=== PATIENT | female | born 1955 | race Caucasian/White ===

== ENCOUNTER 2019-07-15 15:54 | Emergency (ER) | payer MEDICARE, OTHER, SELFPAY ==
[2019-07-15] VITALS (10 sets, daily range): BP systolic 108–152; BP diastolic 61–82; PULSE 90–106; RESP 16–25; TEMP 37.4; O2SAT 96–99; BMI 31.1
--- NOTE | 2019-07-15 18:39 | DI.CT.S_ITS ---
PROCEDURE: CT ABDOMEN PELVIS W CON INDICATIONS: large abscess in lower abdomen TECHNIQUE: After the administration of intravenous contrast, 5 mm thick sections acquired from the diaphragm to the symphysis. 5 mm coronal and sagittal reformats were acquired. For radiation dose reduction, the following was used: automated exposure control, adjustment of mA and/or kV according to patient size. COMPARISON: [facility] , CT, ABD/PELVIS W/CON ([facility]), 05/31/2010, 17:22. FINDINGS: Image quality: Excellent. ABDOMEN: Lung bases: Lung bases are clear. Heart size is normal. A moderate to large hiatal hernia is seen. Solid organs: Liver is normal in size and enhancement. Diffuse fatty liver infiltration is noted. Gallbladder is been removed. Biliary system is non dilated. Pancreas enhances normally. Spleen is normal in size and enhancement. No adrenal nodules. Kidneys demonstrate normal size and enhancement, without hydronephrosis. A water density cyst can be seen within the left mid kidney laterally measuring 12 mm. Peritoneum and bowel: Left upper quadrant postoperative clips are seen. Bowel loops demonstrate normal wall thickness and caliber. No free fluid or air. A moderate amount of stool can be seen within the colon. Incidental note is made of a normal-appearing appendix. Nodes and vessels: No retroperitoneal or mesenteric adenopathy by size criteria. Aorta and inferior vena cava are normal in size. Miscellaneous: There is an irregular rim enhancing multiloculated fluid collection seen involving the anterior abdominal wall, which measures 7.6 cm transversely by 5.5 cm AP, with a craniocaudal extent of 3.9 cm. Moderate surrounding inflammatory changes are seen. Just deep and superior to the primary abscess, there is an additional multiloculated abscess collection seen that measures 2.4 x 2.8 x 1.7 cm. Paraumbilical PELVIS: Genitourinary: Bladder wall thickness is normal. Miscellaneous: No inguinal hernias or adenopathy. Cystic changes are seen of the adnexal regions, with the largest individual locule measuring up to 2.4 cm. This patient is status post hysterectomy. Bones: No suspicious bony lesions. No vertebral body compression fractures. Mild dextroconvex scoliotic curvature is seen. Degenerative changes are seen throughout. IMPRESSION: Areas of multiloculated abscess can be seen involving the anterior abdominal wall inferiorly. Adnexal cysts, with the largest locule measuring up to 2.4 cm. When clinically appropriate, please consider a dedicated pelvic ultrasound for further evaluation. These are only slightly larger than 2010 and are likely benign. Incidental note is made of: Moderate to large hiatal hernia Fatty liver infiltration Cholecystectomy Mild fat containing periumbilical hernia Normal appendix Hysterectomy Dictated by: Robi Joy M.D. on 07/15/2019 at 20:53 Approved by: Robi Joy M.D. on 07/15/2019 at 21:00
[2019-07-15 19:40] LABS: Add Manual Diff / Slide Review NO; Basophils Absolute Auto 0 /uL (0-100); Basophils Percent Auto 0.5 % (0-2); Eosinophils Absolute Auto 0 /uL (0-450); Eosinophils Percent Auto 0.5 % (2-4); Hematocrit 34.9 % (36-46); Hemoglobin 11.9 g/dL (12.0-16.0); Lymphocytes Absolute Auto 1700 /uL (1100-4500); Lymphocytes Percent Auto 23.7 % (25-40); Mean Corpuscular Hemoglobin 29.2 PG (26-34); Mean Corpuscular Volume 85.7 fL (80-100); Monocytes Absolute Auto 900 /uL (0-900); Monocytes Percent Auto 12.5 % (3-14); Neutrophils Absolute Auto 4600 /uL (1500-7000); Neutrophils Percent Auto 62.8 % (50-75); Platelet Count 378 X10^3/uL (150-400); Red Blood Cell Count 4.07 X10^6/uL (4.0-5.2); Red Cell Distribution Width 12.8 % (11.6-14.8); White Blood Cell Count 7.3 X10^3/uL (4.5-11.0)
[2019-07-15 19:50] LABS: BUN Creatinine Ratio 15.7 (6-22); Blood Urea Nitrogen 11 mg/dL (7-17); Calcium 8.8 mg/dL (8.4-10.2); Carbon Dioxide 26 mmol/L (22-32); Chloride 101 mmol/L (98-107); Estimated Glomerular Filt Rate > 60.0 mL/min (>60); Glucose 87 mg/dL (80-110); HEMOLYSIS < 15 (0-50); Potassium 3.7 mmol/L (3.4-5.1); Sodium 139 mmol/L (137-145)
--- NOTE | 2019-07-15 21:11 | ED_ITS ---
HPI - Abdominal Pain <JEANNE Parson - Last Filed: 07/16/19 00:43> General Chief Complaint: Abdominal Pain Stated Complaint: sent by physician for abcess on abdomen Time Seen by Provider: 07/15/19 17:56 Source: patient and family Mode of arrival: Ambulatory Limitations: no limitations History of Present Illness HPI narrative: This is a 64-year-old female, nonsmoker, who presents to ED after referred by her primary care physician's office for evaluation on low abdominal abscess. Patient reports onset of small abdominal lump started a week ago which has been increasing in size, pain, redness, and warmth. Patient denies fever or chills. Patient had mild nausea but no vomiting. Patient had surgical history such as partial hysterectomy, cholecystectomy, tummy tuck and has transverse scar near for she has a abdominal abscess. Related Data Home Medications Medication Instructions Recorded Confirmed estradiol 0.5 mg PO DAILY 07/15/19 07/15/19 ketorolac OPHTHALMIC (EYE) 07/15/19 prednisolone acetate OPHTHALMIC (EYE) 07/15/19 tobramycin OPHTHALMIC (EYE) 07/15/19 Previous Rx's Medication Instructions Recorded sulfamethoxazole-trimethoprim 1 tab PO BID 7 Days #14 tab 07/15/19 tramadol 50 mg PO Q12H PRN #7 tab 07/15/19 Allergies Allergy/AdvReac Type Severity Reaction Status Date / Time hydrocodone [HYDROCODONE] Allergy Unknown ITCHING Unverified 02/03/18 12:11 AND THROAT SWELLING Review of Systems <JEANNE Parson - Last Filed: 07/16/19 00:43> Review of Systems ROS Unobtainable: All systems reviewed & are unremarkable except as noted in HPI and below PFSH <JEANNE Parson - Last Filed: 07/16/19 00:43> Surgical History H/O abdominoplasty (Acute) History of repair of hiatal hernia Status post cholecystectomy Status post hysterectomy Family History (Updated 01/21/16 @ 00:00 by Conversion Provider) Father Diabetes mellitus Mother Hypertension Social History Smoking Status: Never smoker Family History Father Diabetes mellitus Mother Hypertension Social History Smoking Status: Never smoker Exam <JEANNE Parson - Last Filed: 07/16/19 00:43> Narrative Exam Narrative: General appearance: well developed, well nourished, in no acute distress. Head: normocephalic, atraumatic, no scalp lesions, non-tender. Eye: pupil equal, round. EOMI. Nose: nares patent. Oral: mucosa moist. Neck/Thyroid: neck supple, full range of motion, no visible masses. Skin: Large indurated low abdominal lesion with warmth, erythema without any drainage. Old horizontal surgical scar on low abdomen. no suspicious rashes, lesions over other visible areas. Warm and dry. Heart: no clubbing, no cyanosis, no edema. S1 and S2 with regular rhythm and rate. Lungs: Breathing even and unlabored. Lungs clear to auscultate in all lobes. No stridor. No accessory muscles used. Chest: normal shape and expansion. Abdomen: non-obese, non-distended. Neurologic: alert and oriented. 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 Psych: good eye contact, normal affect. Initial Vital Signs Initial Vital Signs: Vital Signs Temperature 99.3 F 07/15/19 16:02 Pulse Rate 99 H 07/15/19 16:02 Respiratory Rate 16 07/15/19 16:02 Blood Pressure 132/78 07/15/19 16:02 Pulse Oximetry 96 07/15/19 16:02 <Jimbo Wetzel DO - Last Filed: 07/16/19 02:07> Initial Vital Signs Initial Vital Signs: Vital Signs Temperature 99.3 F 07/15/19 16:02 Pulse Rate 99 H 07/15/19 16:02 Respiratory Rate 16 07/15/19 16:02 Blood Pressure 132/78 07/15/19 16:02 Pulse Oximetry 96 07/15/19 16:02 Procedures <JEANNE Parson - Last Filed: 07/16/19 00:43> Abscess I/D Site: abdomen Side (if applicable): left Sedation/analgesia: midazolam and fentanyl Local Anesthetic: lidocaine 2% and with epi Amount of anesthesia used (mL): 10 Technique: incised with #11 blade and other (by DR. Krause and cauterized) Irrigation: Yes Packing used?: plain (wet gauze) and sarai drain Procedural Sedation Patient Age: Patient is 5yrs or older Consent signed: Yes Time out performed: Yes Indication: incision and drainage of abscess ASA Class: I Mallampati Airway Classification: Class II Time of Last PO Intake: 14:00 Preparation: paint crew supervisor applied, pulse oximeter, capnometry used, supplemental O2 applied, reversal agents at bedside, suction/airway equipment at bedside and IV secured Fentanyl: IV Fentanyl dose (mcg): 75 Midazolam: IV Midazolam dose (mg): 5 ED Sedation Level: Moderate (Concious) Patient Tolerated Procedure: Well Complications: none Scores <JEANNE Parson - Last Filed: 07/16/19 00:43> GCS [place] coma scale eye opening: Spontaneous Jairon coma scale verbal response: Orientated [place] coma scale motor response: Obey commands [place] coma scale total score: 15 Course <JEANNE Parson - Last Filed: 07/16/19 00:43> Orders Ordered: ED Orders 07/15/19 18:39 CT abdomen pelvis w con Stat 07/15/19 19:33 Basic Metabolic Panel Stat Complete Blood Count AUTO DIFF Stat 07/15/19 19:51 Lactate (Lactic Acid) Stat 07/15/19 22:00 Wound Culture and Gram Stain Routine Wound Culture and Gram Stain Stat Discontinued Medications Fentanyl (Sublimaze) 50 mcg IV NOW ONE Stop: 07/15/19 21:43 Last Admin: 07/15/19 23:04 Dose: 50 mcg Documented by: BRANDY Sodium Chloride (Normal Saline 0.9%) 1,000 mls @ 150 mls/hr IV CONT BETO Last Infusion: 07/16/19 01:02 Dose: 150 mls/hr Documented by: Admin: 07/15/19 22:00 Dose: 150 mls/hr Documented by: BRANDY Vancomycin HCl (Vancomycin) 1,000 mg in 200 mls @ 200 mls/hr IV NOW ONE Stop: 07/15/19 23:27 Last Infusion: 07/16/19 00:37 Dose: 200 mls/hr Documented by: Admin: 07/15/19 23:09 Dose: 200 mls/hr Documented by: BRANDY Lidocaine/Epinephrine (Xylocaine 2% W/Epi) 20 ml INJ INTRA-OP ONE Stop: 07/15/19 22:09 Last Admin: 07/15/19 23:04 Dose: 20 ml Documented by: BRANDY Midazolam HCl (Versed) 3 mg IV NOW ONE Stop: 07/15/19 21:43 Last Admin: 07/15/19 22:16 Dose: Not Given Documented by: BRANDY Ondansetron HCl (Zofran) 4 mg IV NOW ONE Stop: 07/15/19 21:43 Last Admin: 07/15/19 22:00 Dose: 4 mg Documented by: BRANDY Trimethoprim/Sulfamethoxazole (Bactrim Ds Prepack) 1 bottle MISC SEEINSTR ONE Stop: 07/15/19 22:22 Last Admin: 07/15/19 23:09 Dose: 1 bottle Documented by: BRANDY Vital Signs Vital signs: Vital Signs - 8 hr 07/15/19 20:35 07/15/19 22:10 07/15/19 22:16 Temperature Pulse Rate 90 106 H Respiratory Rate 17 20 25 H Blood Pressure Blood Pressure [Right Arm] 152/82 H 138/70 Pulse Oximetry 98 98 07/15/19 22:20 07/15/19 22:25 07/15/19 22:30 Temperature Pulse Rate 97 H 95 H 100 H Respiratory Rate 19 22 20 Blood Pressure Blood Pressure [Right Arm] 114/61 114/61 115/71 Pulse Oximetry 98 97 99 07/15/19 22:35 07/15/19 22:40 07/15/19 22:45 Temperature Pulse Rate 96 H 95 H 97 H Respiratory Rate 22 19 20 Blood Pressure Blood Pressure [Right Arm] 110/66 108/69 119/62 Pulse Oximetry 99 99 97 07/16/19 01:05 Temperature 98.2 F Pulse Rate 87 Respiratory Rate 16 Blood Pressure 118/74 Blood Pressure [Right Arm] Pulse Oximetry 98 <Jimbo Wetzel, - Last Filed: 07/16/19 02:07> Orders Ordered: ED Orders 07/15/19 18:39 CT abdomen pelvis w con Stat 07/15/19 19:33 Basic Metabolic Panel Stat Complete Blood Count AUTO DIFF Stat 07/15/19 19:51 Lactate (Lactic Acid) Stat 07/15/19 22:00 Wound Culture and Gram Stain Routine Wound Culture and Gram Stain Stat Discontinued Medications Fentanyl (Sublimaze) 50 mcg IV NOW ONE Stop: 07/15/19 21:43 Last Admin: 07/15/19 23:04 Dose: 50 mcg Documented by: BRANDY Sodium Chloride (Normal Saline 0.9%) 1,000 mls @ 150 mls/hr IV CONT BETO Last Infusion: 07/16/19 01:02 Dose: 150 mls/hr Documented by: Admin: 07/15/19 22:00 Dose: 150 mls/hr Documented by: BRANDY Vancomycin HCl (Vancomycin) 1,000 mg in 200 mls @ 200 mls/hr IV NOW ONE Stop: 07/15/19 23:27 Last Infusion: 07/16/19 00:37 Dose: 200 mls/hr Documented by: Admin: 07/15/19 23:09 Dose: 200 mls/hr Documented by: BRANDY Lidocaine/Epinephrine (Xylocaine 2% W/Epi) 20 ml INJ INTRA-OP ONE Stop: 07/15/19 22:09 Last Admin: 07/15/19 23:04 Dose: 20 ml Documented by: BRANDY Midazolam HCl (Versed) 3 mg IV NOW ONE Stop: 07/15/19 21:43 Last Admin: 07/15/19 22:16 Dose: Not Given Documented by: BRANDY Ondansetron HCl (Zofran) 4 mg IV NOW ONE Stop: 07/15/19 21:43 Last Admin: 07/15/19 22:00 Dose: 4 mg Documented by: BRANYD Trimethoprim/Sulfamethoxazole (Bactrim Ds Prepack) 1 bottle MISC SEEINSTR ONE Stop: 07/15/19 22:22 Last Admin: 07/15/19 23:09 Dose: 1 bottle Documented by: BRANDY Vital Signs Vital signs: Vital Signs - 8 hr 07/15/19 20:35 07/15/19 22:10 07/15/19 22:16 Temperature Pulse Rate 90 106 H Respiratory Rate 17 20 25 H Blood Pressure Blood Pressure [Right Arm] 152/82 H 138/70 Pulse Oximetry 98 98 07/15/19 22:20 07/15/19 22:25 07/15/19 22:30 Temperature Pulse Rate 97 H 95 H 100 H Respiratory Rate 19 22 20 Blood Pressure Blood Pressure [Right Arm] 114/61 114/61 115/71 Pulse Oximetry 98 97 99 07/15/19 22:35 07/15/19 22:40 07/15/19 22:45 Temperature Pulse Rate 96 H 95 H 97 H Respiratory Rate 22 19 20 Blood Pressure Blood Pressure [Right Arm] 110/66 108/69 119/62 Pulse Oximetry 99 99 97 07/16/19 01:05 Temperature 98.2 F Pulse Rate 87 Respiratory Rate 16 Blood Pressure 118/74 Blood Pressure [Right Arm] Pulse Oximetry 98 MDM - Abdominal Pain <Xavier JEANNE Angel - Last Filed: 07/16/19 00:43> Differential Diagnosis Differential diagnosis: Likely abdominal pain and other (Abdominal wall abscess) Medical Records Attestation: I reviewed the patient's medical records. Lab Data Attestation: I reviewed the patient's lab results. Result diagrams: 07/15/19 19:33 07/15/19 19:33 Labs: Lab Results 07/15/19 07/15/19 07/15/19 Range/Units 19:33 19:33 19:51 WBC 7.3 (4.5-11.0) X10^3/uL RBC 4.07 (4.0-5.2) X10^6/uL Hgb 11.9 L (12.0-16.0) g/dL Hct 34.9 L (36-46) % MCV 85.7 (80-100) fL MCH 29.2 (26-34) PG MCHC 34.0 (30-36) % RDW 12.8 (11.6-14.8) % Plt Count 378 (150-400) X10^3/uL Neut % (Auto) 62.8 (50-75) % Lymph % (Auto) 23.7 L (25-40) % [place] % (Auto) 12.5 (3-14) % Eos % (Auto) 0.5 L (2-4) % Baso % (Auto) 0.5 (0-2) % Neut # (Auto) 4600 (6631-3741) /uL Lymph # (Auto) 1700 (9258-3427) /uL [place] # (Auto) 900 (0-900) /uL Eos # (Auto) 0 (0-450) /uL Baso # (Auto) 0 (0-100) /uL Sodium 139 (137-145) mmol/L Potassium 3.7 (3.4-5.1) mmol/L Chloride 101 (98-107) mmol/L Carbon Dioxide 26 (22-32) mmol/L BUN 11 (7-17) mg/dL Creatinine 0.70 (0.52-1.04) mg/dL Estimated GFR > 60.0 (>60) mL/min BUN/Creatinine Ratio 15.7 (6-22) Glucose 87 (80-110) mg/dL Lactate 1.0 (0.7-2.1) mmol/L Calcium 8.8 (8.4-10.2) mg/dL Imaging Data CT-Abdomen/Pelvis: Radiologist's impression: [address] [address] [address] Scan Report Signed Patient: Ashli Garcias [facility]#: [id number] : 4Acct:[id number] Age/Sex: 64 / FDate of Service: 07/15/19 Loc: ED Accession Number: [id number] Procedure: CT abdomen pelvis w con Ordering Provider: Xavier Angel PROCEDURE: CT ABDOMEN PELVIS W CON INDICATIONS: large abscess in lower abdomen TECHNIQUE: After the administration of intravenous contrast, 5 mm thick sections acquired from the diaphragm to the symphysis. 5 mm coronal and sagittal reformats were acquired. For radiation dose reduction, the following was used: automated exposure control, adjustment of mA and/or kV according to patient size. COMPARISON: [facility] , CT, ABD/PELVIS W/CON ([facility]), 05/31/2010, 17:22. FINDINGS: Image quality: Excellent. ABDOMEN: Lung bases: Lung bases are clear. Heart size is normal. A moderate to large hiatal hernia is seen. Solid organs: Liver is normal in size and enhancement. Diffuse fatty liver infiltration is noted. Gallbladder is been removed. Biliary system is non dilated. Pa ncreas enhances normally. Spleen is normal in size and enhancement. No adrenal nodules. Kidneys demonstrate normal size and enhancement, without hydronephrosis. A water density cyst can be seen within the left mid kidney laterally measuring 12 mm. Peritoneum and bowel: Left upper quadrant postoperative clips are seen. Bowel loops demonstrate normal wall thickness and caliber. No free fluid or air. A moderate amount of stool can be seen within the colon. Incidental note is made of a normal- appearing appendix. Nodes and vessels: No retroperitoneal or mesenteric adenopathy by size criteria. Aorta and inferior vena cava are normal in size. Miscellaneous: There is an irregular rim enhancing multiloculated fluid collection seen involving the anterior abdominal wall, which measures 7.6 cm transversely by 5.5 cm AP, with a craniocaudal extent of 3.9 cm. Moderate surrounding inflammatory changes are seen. Just deep and superior to the primary abscess, there is an additional multiloculated abscess collection seen that measures 2.4 x 2.8 x 1.7 cm. Paraumbilical PELVIS: Genitourinary: Bladder wall thickness is normal. Miscellaneous: No inguinal hernias or adenopathy. Cystic changes are seen of the adnexal regions, with the largest individual locule measuring up to 2.4 cm. This patient is status post hysterectomy. Bones: No suspicious bony lesions. No vertebral body compression fractures. Mild dextroconvex scoliotic curvature is seen. Degenerative changes are seen throughout. IMPRESSION: Areas of multiloculated abscess can be seen involving the anterior abdominal wall inferiorly. Adnexal cysts, with the largest locule measuring up to 2.4 cm. When clinically appropriate, please consider a dedicated pelvic ultrasound for further evaluation. These are only slightly larger than 2010 and are likely benign. Incidental note is made of: Moderate to large hiatal hernia Fatty liver infiltration Cholecystectomy Mild fat containing periumbilical hernia Normal appendix Hysterectomy Dictated by: Robi Joy M.D. on 07/15/2019 at 20:53 Approved by: Robi Joy M.D. on 07/15/2019 at 21:00 [facility] Narrative Medical decision making narrative: This is a 64-year-old female who was referred from her primary care physician's office for an evaluation of low abdominal abscess which started about a week ago. Patient is afebrile, without hypertension, no leukocytosis, with normal lactate. CT of abdomen/pelvis shows multi loculated abscess involving anterior abdominal wall inferiorly size in 7.6x 5.5x 3.9 cm and just deep and superior to this main abscess another abscess in size of 2.4 x 2.8x 1.7 cm.. The general surgeon, Dr. Krause, was consulted. I & D with procedural sedation being done at bedside with OR crews and Dr. Krause. Two wound cultures were obtained and sent out to lab. Please see procedural sedation and I & D procedural notes patient tolerated procedure well. Patient was medicated with IV vancomycin 1 g prior DC to home. Patient advised to change she abdominal wound packing twice a day and discharged to home with antibiotic medications Septra b.i.d. dose for 7 days. Patient states she will be able to change dressing, however, patient advised to return to ED if this can be done at home. Home wound care supply has been provided. A referral to wound Care Clinic has been faxed and advised to follow up and also to follow up with General surgery Clinic the following week. Patient discharged to home with traumadol for severe pain and narcotic medication precautions were discussed. Return precautions were discussed with patient and patient and spouse agree with treatment plan and no further questions were expressed at this time. <Jimbo Wetzel, - Last Filed: 07/16/19 02:07> Lab Data Labs: Lab Results 07/15/19 07/15/19 07/15/19 Range/Units 19:33 19:33 19:51 WBC 7.3 (4.5-11.0) X10^3/uL RBC 4.07 (4.0-5.2) X10^6/uL Hgb 11.9 L (12.0-16.0) g/dL Hct 34.9 L (36-46) % MCV 85.7 (80-100) fL MCH 29.2 (26-34) PG MCHC 34.0 (30-36) % RDW 12.8 (11.6-14.8) % Plt Count 378 (150-400) X10^3/uL Neut % (Auto) 62.8 (50-75) % Lymph % (Auto) 23.7 L (25-40) % [place] % (Auto) 12.5 (3-14) % Eos % (Auto) 0.5 L (2-4) % Baso % (Auto) 0.5 (0-2) % Neut # (Auto) 4600 (8943-3371) /uL Lymph # (Auto) 1700 (1110-8089) /uL [place] # (Auto) 900 (0-900) /uL Eos # (Auto) 0 (0-450) /uL Baso # (Auto) 0 (0-100) /uL Sodium 139 (137-145) mmol/L Potassium 3.7 (3.4-5.1) mmol/L Chloride 101 (98-107) mmol/L Carbon Dioxide 26 (22-32) mmol/L BUN 11 (7-17) mg/dL Creatinine 0.70 (0.52-1.04) mg/dL Estimated GFR > 60.0 (>60) mL/min BUN/Creatinine Ratio 15.7 (6-22) Glucose 87 (80-110) mg/dL Lactate 1.0 (0.7-2.1) mmol/L Calcium 8.8 (8.4-10.2) mg/dL Discharge Plan Departure Patient Disposition: Home Clinical Impression: Abscess of abdominal wall Open abdominal incision with drainage Qualifiers: Encounter type: initial encounter Qualified Code(s): T81.31XA - Disruption of external operation (surgical) wound, not elsewhere classified, initial encounter Discharge Date/Time: 07/16/19 00:37 Instructions: DI for Incision and Drainage of a Skin Abscess Activity Restrictions/Additional Instructions: You have been diagnosed with [multioculated abscess to abdominal wall per CT scan. These have been incise and drained by general surgeon in ED. Also incidental finding of Adnexal cysts measuring upto 2.4cm and this should be followed up with their primary care physician with pelvic ultrasound for further evaluation at some point. This is only slightly larger than 2010 and imaging test when it is compared. The blood tests were unremarkable.]. What to do: *Take your medications as directed. Please continue to take Bactrim DS twice a day for 7 days starting tomorrow morning. You can take qyny-[id number] Tylenol and or Motrin as needed for discomfort. The surgeon would like you to pack abdominal wound twice a day with moist gauze (squeeze out the excess saline) and cover with abdominal pad dressing to catch the drainage. Please contact wound care clinic on Thursday to schedule a follow-up appointment by calling [phone] [facility] Surgeons clinic the following week. *Follow up with your primary care provider in 2-3 days, call for an appointment. Let them know you were seen in the ED and that we asked you to be seen in follow up. *Return to ED if you have any new, worsening, or concerning symptoms, such as [fever, chills, nausea, vomiting, chest pain, breathing difficulty, unable to tolerate fluids or medication, severe abdominal pain, redness and swelling spreading to adjacent incisional site, or any acute concerns]. Prescriptions: New sulfamethoxazole-trimethoprim 800-160 mg tablet 1 tab PO BID 7 Days Qty: 14 RF: 0 tramadol 50 mg tablet 50 mg PO Q12H PRN (Reason: pain) Qty: 7 RF: 0 No Action ketorolac 0.5 % drops OPHTHALMIC (EYE) RF: 0 prednisolone acetate 1 % drops,suspension OPHTHALMIC (EYE) RF: 0 tobramycin 0.3 % drops ophthalmic (eye) RF: 0 estradiol 0.5 mg tablet 0.5 mg PO DAILY RF: 0 Referrals: Lloyd Dowd MD [Physician] - Dipak Krause MD [Physician] - Jada Archer MD [Physician] - <Jimbo Wetzel DO - Last Filed: 07/16/19 02:07> Sign Out Provider Sign Out Attestation: I was available for consultation during this patient's emergency department encounter
[2019-07-15] MEDS: ONDANSETRON 4 MG/2 ML INJ IV (22:00)
[2019-07-15] MEDS: SODIUM CHLORIDE 0.9% 1,000 ML 150 ML IV (22:00)
--- NOTE | 2019-07-15 22:50 | P.CONS_ITS ---
History of Present Illness Consult details Date Patient Seen: 07/15/19 Time Patient Seen: 21:10 Chief complaint: sent by physician for abcess on abdomen Reason for consult: Superficial abdominal wall abscess Narrative: 64-year-old woman with a history of obesity status post abdominal plasty 6 years ago. To her knowledge this was not complicated by seroma. She presents with approximately 1 week of a growing area of fullness just to the l eft of midline at her abdominal plasty scar. More recently this has become hot, with substantial erythema. She is felt somewhat poorly. In the emergency department white blood cell count was 7 , due to the impressive size of her swelling a CT scan was performed -this demonstrated a superficial la rge somewhat complex abscess cavity extending to the fascia primarily in the subcutaneous fat. There was preserved fat planes between the underlying bowel and the abdominal wall -with no suggestion of intra-abdominal process/fistula tract. FORMERLY [facility], 1928–1983 Surgical History H/O abdominoplasty (Acute) History of repair of hiatal hernia Status post cholecystectomy Status post hysterectomy Family History (Updated 01/21/16 @ 00:00 by Conversion Provider) Father Diabetes mellitus Mother Hypertension Social History Smoking Status: Never smoker Family History Father Diabetes mellitus Mother Hypertension Social History Smoking Status: Never smoker Meds Home Medications and Allergies Home Medications Medication Instructions Recorded Confirmed Type estradiol 0.5 mg PO DAILY 07/15/19 07/15/19 History ketorolac OPHTHALMIC (EYE) 07/15/19 History prednisolone acetate OPHTHALMIC (EYE) 07/15/19 History tobramycin OPHTHALMIC (EYE) 07/15/19 History Allergies Allergy/AdvReac Type Severity Reaction Status Date / Time hydrocodone [HYDROCODONE] Allergy Unknown ITCHING Unverified 02/03/18 12:11 AND THROAT SWELLING Review of Systems Constitutional Constitutional: Denies fever(s) Eyes Eyes: Denies bulging eyes ENT Ears, Nose, Mouth, and Throat: No lip swelling Cardiovascular Cardiovascular: Denies generalize swelling Respiratory Respiratory: Denies stridor Gastrointestinal Gastrointestinal: Denies coffee ground emesis Musculoskeletal Musculoskeletal: Denies loss of height Integumentary/Breasts Skin/Breast: Denies wounds Neurologic Neurologic: Denies abnormal speech and Denies confusion Psychiatric Psychiatric: Denies confusion and Denies tactile hallucinations Endocrine Endocrine: Denies deepening of the voice Hematologic/Lymphatic Hematologic/Lymphatic: Denies lymphadenopathy Allergic/Immunologic Allergic/Immunologic: Denies lip swelling Exam Vital Signs (past 8 hours): - 07/15/19 16:02 07/15/19 20:35 07/15/19 22:16 Temperature 99.3 F Pulse Rate 99 H 90 106 H Respiratory Rate 16 17 25 H Blood Pressure 132/78 Blood Pressure [Right Arm] 152/82 H 138/70 Pulse Oximetry 96 98 98 07/15/19 22:20 07/15/19 22:25 07/15/19 22:30 Temperature Pulse Rate 97 H 95 H 100 H Respiratory Rate 19 22 20 Blood Pressure Blood Pressure [Right Arm] 114/61 114/61 115/71 Pulse Oximetry 98 97 99 07/15/19 22:35 07/15/19 22:40 07/15/19 22:45 Temperature Pulse Rate 96 H 95 H 97 H Respiratory Rate 22 19 20 Blood Pressure Blood Pressure [Right Arm] 110/66 108/69 119/62 Pulse Oximetry 99 99 97 Oxygen Delivery Method Nasal Cannula Oxygen Flow Rate 3 Const General: cooperative and healthy appearing Orientation: alert HENIN Head: normal to inspection Nose: nares normal Mouth: oral mucosae normal and lip normal Eyes Eyelids: eyelids normal Conjunctivae: conjunctivae normal Sclera: sclerae normal Neck Neck: supple and other (No thyromegally) Chest Chest: other (LCTAB , regular respiratory effort) Cardio Rhythm: regular rhythm Heart Sounds: S1 normal, S2 normal, no gallops, no murmurs and no rubs GI Other: There is a 14 x 10 cm area of erythema overlying the abdominal plasty incision site there is induration in this area -these inflammatory changes though are localized. There is localized tenderness. There is no generalized abdominal tenderness Skin General: no rashes or lesions noted Neuro General: alert and awake Psych Appearance: grossly normal Affect: normal affect Objective Labs Result Diagrams: 07/15/19 19:33 07/15/19 19:33 Labs: Laboratory Results - last 24 hr 07/15/19 07/15/19 07/15/19 19:33 19:33 19:51 WBC 7.3 RBC 4.07 Hgb 11.9 L Hct 34.9 L MCV 85.7 MCH 29.2 MCHC 34.0 RDW 12.8 Plt Count 378 Neut % (Auto) 62.8 Lymph % (Auto) 23.7 L [place] % (Auto) 12.5 Eos % (Auto) 0.5 L Baso % (Auto) 0.5 Neut # (Auto) 4600 Lymph # (Auto) 1700 [place] # (Auto) 900 Eos # (Auto) 0 Baso # (Auto) 0 Sodium 139 Potassium 3.7 Chloride 101 Carbon Dioxide 26 BUN 11 Creatinine 0.70 Estimated GFR > 60.0 BUN/Creatinine Ratio 15.7 Glucose 87 Lactate 1.0 Calcium 8.8 Assessment & Plan Assessment & Plan narrative: 64-year-old woman status post abdominoplasty with complex abscess formation at her transverse lower abdominal scar -this does not appear to be related to a intra-abdominal process, perhaps an infected chronic seroma space. Plan: Incision and drainage in the emergency department with procedure was sedation Will need b.i.d. wet to dry wound packing with Kerlix gauze and ABD pads IV vancomycin now due to circumferential cellulitis Would sent home on 7 days of Bactrum DS b.i.d. PO Should follow up with General surgery next week -needs follow-up of wound cultures Should follow up with wound clinic as well -needs follow-up of wound cultures
--- NOTE | 2019-07-15 22:59 | PM.OP.1 ---
Operative Date/Time/Diagnoses Date of procedure: 07/15/19 Time of procedure: 23:01 Pre-op diagnosis: Superficial abdominal wall abscess Post-op diagnosis: same Procedure & Clinicians Procedure: Incision and drainage of abdominal wall abscess Same procedure as scheduled: Yes Indications: 64-year-old woman 6 years status post abdominoplasty presented with 1 week of swelling erythema and pain near the midline of her transverse abdominal plasty wound. On CT scan found to have a large abscess cavity superficial to the fascia Surgeon: Dipak Krause Click Yes if Unassisted: Yes Anesthesia Type: Sedation Operative Notes Findings: Large complex but superficial abscess cavity - well drained Closure Type: not applicable Specimen(s): other (Cultures only) Estimated Blood Loss (mL): 15 Procedure in detail: Within the emergency room department patient was sedated by her nurse practitioner. A local anesthetic field block using 2% lidocaine with epinephrine was performed. An area of obvious skin thinning the abscess cavity was entered with Bovie cautery. There was an egress of large amount of pus which was cultured. A finger was then inserted into the cavity and de loculated the area -the cavity tracked laterally on either side of the midline and and the incision was extended into a approximately 8 cm long transverse incision following her scar. There was an additional abscess pocket identified further to the right. a Anny drain was looped through this via a counter incision. The cavity was then copiously washed out -some of the cavity wall was debrided sharply in an excisional debridement. Several bleeders were coagulated. The wound was then packed with a moistened Kerlix and covered with ABDs. Please note -there is no evidence of necrotic tissue, tissue planes were intact Complications: none Post-operative Condition: stable Disposition: other (ED then ) Plan for aftercare: B.i.d. wet to dry packing at home P.o. antibiotics after IV vancomycin Follow up in general surgery clinic and wound care
[2019-07-15] MEDS: fentaNYL 100 MCG/2 ML INJ 50 MCG IV (23:04)
[2019-07-15] MEDS: LIDOCAINE 2% W/EPI INJ 20 ML INJ (23:04)
[2019-07-15] MEDS: VANCOMYCIN 1,000 MG/200 ML PIGGYBACK 200 MG IV (23:09)
[2019-07-15] MEDS: TRIMETH/SULFA 160/800 PREPACK 1 BOTTLE MISC (23:09)
[2019-07-16 01:05] VITALS: BP 118/74; PULSE 87; RESP 16; TEMP 36.8; O2SAT 98
== END 2019-07-16 00:37 | disposition home or self-care (01) ==
PROVIDERS: Emergency Provider Nurse Practitioner Family
DX: L02.211 Cutaneous abscess of abdominal wall (principal); T81.31XA Disruption of external operation (surgical) wound, not elsewhere classified, initial encounter
CPT/HCPCS: 10061; 36415; 36591; 74177; 80048; 83605; 85025; 87070; 87075; 87077; 87147; 87186; 87205; 94770; 96361; 96365; 96375; 99152; 99153; 99284; 99291; J2405; J3010; Q9967

== ENCOUNTER → 2019-07-21 13:29 | Outpatient (CLI) | payer MEDICARE, OTHER, SELFPAY | PROVIDERS: PCP Family Medicine; Visit Provider Family Medicine | DX: S31.103A Unspecified open wound of abdominal wall, right lower quadrant without penetration into peritoneal cavity, initial encounter (principal); S31.105A Unspecified open wound of abdominal wall, periumbilic region without penetration into peritoneal cavity, initial encounter | CPT/HCPCS: 99203; 99213 ==

== ENCOUNTER → 2019-07-21 15:03 | Outpatient (CLI) | payer MEDICARE, OTHER, SELFPAY ==
--- NOTE | 2019-07-21 | DI.US.S_ITS ---
PROCEDURE: US THYROID INDICATIONS: THYROID NODULE TECHNIQUE: Real-time scanning was performed of the thyroid gland, with image documentation. COMPARISON: None. FINDINGS: Right: Thyroid lobe measures 4.6 x 1.9 x 1.8 cm, and is diffusely heterogeneous in echotexture. Left: Thyroid lobe measures 4.4 x 1.9 x 1.7 cm, and is diffusely heterogeneous in echotexture. Isthmus: 3. mm thick. IMPRESSION: Diffusely heterogeneous thyroid and no focal thyroid nodule seen. Dictated by: Rigo WHITE Interpreted: Cleveland Lazar MD on 07/21/2019 at 15:34 Approved by: Cleveland Lazar M.D. on 07/21/2019 at 17:31
== END ==
PROVIDERS: PCP Family Medicine; Visit Provider Family Medicine
DX: E04.1 Nontoxic single thyroid nodule (principal); S31.103A Unspecified open wound of abdominal wall, right lower quadrant without penetration into peritoneal cavity, initial encounter; S31.105A Unspecified open wound of abdominal wall, periumbilic region without penetration into peritoneal cavity, initial encounter
CPT/HCPCS: 76536; 99213

== ENCOUNTER → 2019-07-29 10:16 | Outpatient (CLI) | payer MEDICARE, OTHER, SELFPAY | PROVIDERS: PCP Family Medicine; Visit Provider Family Medicine | DX: S31.103A Unspecified open wound of abdominal wall, right lower quadrant without penetration into peritoneal cavity, initial encounter (principal); S31.105A Unspecified open wound of abdominal wall, periumbilic region without penetration into peritoneal cavity, initial encounter | CPT/HCPCS: 11042; 97605 ==

== ENCOUNTER → 2019-08-01 13:03 | Outpatient (CLI) | payer MEDICARE, OTHER, SELFPAY | PROVIDERS: PCP Family Medicine; Visit Provider Podiatrist Primary Podiatric Medicine | DX: S31.105A Unspecified open wound of abdominal wall, periumbilic region without penetration into peritoneal cavity, initial encounter (principal) | CPT/HCPCS: 97605 ==

== ENCOUNTER → 2019-08-03 09:07 | Outpatient (CLI) | payer MEDICARE, OTHER, SELFPAY | PROVIDERS: PCP Family Medicine; Visit Provider Family Medicine | DX: S31.103A Unspecified open wound of abdominal wall, right lower quadrant without penetration into peritoneal cavity, initial encounter (principal); S31.105A Unspecified open wound of abdominal wall, periumbilic region without penetration into peritoneal cavity, initial encounter | CPT/HCPCS: 97605; 99213 ==

== ENCOUNTER → 2019-08-05 10:40 | Outpatient (CLI) | payer MEDICARE, OTHER, SELFPAY | PROVIDERS: PCP Family Medicine; Visit Provider Family Medicine | DX: S31.105A Unspecified open wound of abdominal wall, periumbilic region without penetration into peritoneal cavity, initial encounter (principal) | CPT/HCPCS: 97605 ==

== ENCOUNTER → 2019-08-08 08:59 | Outpatient (CLI) | payer MEDICARE, OTHER, SELFPAY | PROVIDERS: PCP Family Medicine; Visit Provider Podiatrist Primary Podiatric Medicine | DX: S31.105A Unspecified open wound of abdominal wall, periumbilic region without penetration into peritoneal cavity, initial encounter (principal) | CPT/HCPCS: 97605 ==

== ENCOUNTER → 2019-08-11 09:53 | Outpatient (CLI) | payer MEDICARE, OTHER, SELFPAY | PROVIDERS: PCP Family Medicine; Visit Provider Family Medicine | DX: S31.103A Unspecified open wound of abdominal wall, right lower quadrant without penetration into peritoneal cavity, initial encounter (principal); S31.105A Unspecified open wound of abdominal wall, periumbilic region without penetration into peritoneal cavity, initial encounter | CPT/HCPCS: 11042; 99212 ==

== ENCOUNTER → 2019-08-18 09:42 | Outpatient (CLI) | payer MEDICARE, OTHER, SELFPAY | PROVIDERS: PCP Family Medicine; Visit Provider Family Medicine | DX: S31.103D Unspecified open wound of abdominal wall, right lower quadrant without penetration into peritoneal cavity, subsequent encounter (principal); S31.105D Unspecified open wound of abdominal wall, periumbilic region without penetration into peritoneal cavity, subsequent encounter | CPT/HCPCS: 99213 ==

== ENCOUNTER → 2019-08-22 10:18 | Outpatient (CLI) | payer MEDICARE, OTHER, SELFPAY | PROVIDERS: PCP Family Medicine; Visit Provider Family Medicine | DX: S31.103A Unspecified open wound of abdominal wall, right lower quadrant without penetration into peritoneal cavity, initial encounter (principal); S31.105A Unspecified open wound of abdominal wall, periumbilic region without penetration into peritoneal cavity, initial encounter | CPT/HCPCS: 99213 ==

== ENCOUNTER → 2019-08-25 09:55 | Outpatient (CLI) | payer MEDICARE, OTHER, SELFPAY | PROVIDERS: PCP Family Medicine; Visit Provider Family Medicine | DX: S31.103D Unspecified open wound of abdominal wall, right lower quadrant without penetration into peritoneal cavity, subsequent encounter (principal); S31.105D Unspecified open wound of abdominal wall, periumbilic region without penetration into peritoneal cavity, subsequent encounter | CPT/HCPCS: 99212; 99213 ==

== ENCOUNTER → 2019-09-01 09:35 | Outpatient (CLI) | payer MEDICARE, OTHER, SELFPAY | PROVIDERS: PCP Family Medicine; Visit Provider Family Medicine | DX: S31.103A Unspecified open wound of abdominal wall, right lower quadrant without penetration into peritoneal cavity, initial encounter (principal); S31.105A Unspecified open wound of abdominal wall, periumbilic region without penetration into peritoneal cavity, initial encounter | CPT/HCPCS: 17250 ==

== ENCOUNTER → 2019-09-08 09:45 | Outpatient (CLI) | payer MEDICARE, OTHER, SELFPAY | PROVIDERS: PCP Family Medicine; Visit Provider Family Medicine | DX: S31.103A Unspecified open wound of abdominal wall, right lower quadrant without penetration into peritoneal cavity, initial encounter (principal); S31.105A Unspecified open wound of abdominal wall, periumbilic region without penetration into peritoneal cavity, initial encounter | CPT/HCPCS: 97597 ==

== ENCOUNTER → 2019-09-15 09:47 | Outpatient (CLI) | payer MEDICARE, OTHER, SELFPAY | PROVIDERS: PCP Family Medicine; Visit Provider Family Medicine | DX: S31.103D Unspecified open wound of abdominal wall, right lower quadrant without penetration into peritoneal cavity, subsequent encounter (principal); S31.105D Unspecified open wound of abdominal wall, periumbilic region without penetration into peritoneal cavity, subsequent encounter | CPT/HCPCS: 99212; 99213 ==

== ENCOUNTER 2019-11-23 08:13 | Day surgery (SDC) | payer MEDICARE, OTHER, SELFPAY ==
--- NOTE | 2019-11-22 19:41 | PM.PREOP ---
Pre-operative Note Interval Note History & Physical reviewed/Exam performed by Physician: Yes Changes to H&P: No
[2019-11-23] MEDS: PROPARACAINE 0.5% OPHTH SOL 2 DROPS EYE-OP (09:05)
[2019-11-23] MEDS: CATARACT EYE COMPOUND (10 DROPS/SYRINGE) 3 DROPS EYE-OP (09:05)
[2019-11-23 09:10] VITALS: BP 127/76; PULSE 64; RESP 20; TEMP 35.9; O2SAT 98; BMI 32.1
[2019-11-23] MEDS: LIDOCAINE 2% 4 ML, BUPIVACAINE 0.5% (PF) 4 ML, HYALURONIDASE 150 UNIT INJ (10:18)
[2019-11-23] MEDS: TRYPAN BLUE 0.5 ML SYRINGE INJ (10:18)
[2019-11-23] MEDS: MOXIFLOXACIN INJ 5 MG/ML VIAL EYE-OP (10:19)
[2019-11-23] MEDS: BALANCED SALT IRRIG SOLN NO.2 500 ML, EPINEPHrine 1 MG IRR (10:19)
[2019-11-23] MEDS: TRIAMCINOLONE 50 MG/5 ML VIAL INJ (10:19)
[2019-11-23] MEDS: PHENYLEPHRINE/LIDOCAINE VIAL (OR) 0.2 ML EYE-OP (10:20)
[2019-11-23] MEDS: ERYTHROMYCIN OPHTH 1 GM OINT 1 APPLIC EYE-LEFT (10:21)
[2019-11-23] MEDS: HYALURONATE SODIUM 10 MG/ML SYRINGE INJ (10:21)
[2019-11-23] MEDS: CHONDROIDTIN/SOD HYALURONATE 1.05 ML SYRINGE INTRAOCULA (10:22)
--- NOTE | 2019-11-23 10:46 | PM.OP.1 ---
Operative Date/Time/Diagnoses Date of procedure: 11/23/19 Time of procedure: 09:45 Procedure & Clinicians Procedure: Preoperative diagnoses: 1. Left complex surgery with use of capsular dye. 2. Mature or advanced nuclear sclerotic and cortical cataract with poor visibility of the anterior capsule increasing surgical risks of complications. 3. Thyroid disease 4. Recent upper respiratory infection with residual cough. Postoperative diagnoses: 1. Left complex phacoemulsification surgery with use of capsular dye, 2. Placement of a posterior chamber intraocular lens implant. Surgeon: Lisa Nguyen MD Complications: none Specimen: None Implant: ZCBOO+21.0 Blood loss: None Anesthesia: Retrobulbar with monitored standby. Description of procedure: Dictated by: Lisa Nguyen MD Copy to: [facility] Post operative diagnoses: 1. Left complex cataract removed with use of capsular dye with placement of a posterior chamber intraocular lens. Procedure: Phacoemulsification with posterior chamber intraocular lens implant Surgeon: Lisa Nguyen MD Blood loss: None Anesthesia: Retrobulbar with monitored standby Description of procedure: Patient has presented with decreased vision due to cataract which is affecting activities of daily living. The patient wants surgery to improve vision. She has diffuse cortical cataract which is obscuring any red reflex and will make it difficult to perform surgery without capsular dye. This will be used to increase safety. She did dilate adequately for surgery. She has an intermittent cough due to recent upper respiratory infection which has mostly resolved. The patient was taken to the operating room and given IV sedation. A retrobulbar block consisting of 6 cc of 2% xylocaine without epinephrine mixed half and half with 0.5% Marcaine with 1 cc of hyaluronidase added is placed between the medial and lateral 1/3 of the inferior orbital rim. Lid akinesia is obtain with 1% xylocaine with epinephrine infiltrated along the lid margin. The eye is manually massaged for 30 sec, prepped using Betadine solution, and draped in the usual sterile fashion. Temporal approach was made, a 1 mm side-port incision was performed 90 degrees from the planned corneal wound. Phenylephrine 1.5% mixed with 1% xylocaine 0.2 cc was placed into the anterior chamber. She did have an intermittent cough for the beginning of procedure which resolved as the case when on. An air bubble was placed and Visudyne dye was placed to improve visibility of the anterior capsule. The dye was irrigated out to reduce bubbles. Viscoat followed by Madisyn was then placed. A 2.6 mm clear incision with a 2.6 mm blade was placed. A 360 degree capsulorrhexis style capsulotomy was then performed with a cystitome needle on a Healon. Hydrodelineation and hydrodissection were performed. The phacoemulsification unit is introduced, and sculpting used to groove the central lens. It is then removed in chopping mode. Epi nucleus is removed with epinuclear mode and irrigation aspiration was used to remove the peripheral cortex. The posterior capsule is polished. The intraocular lens is selected, inspected, power confirmed, and placed in the posterior chamber. The pupil was constricted with Miostat. The wound was stromally hydrated and tested for leaks, there was none and was left sutureless. Vigamox 0.1 cc was placed into the anterior chamber. Kenalog 0.2 cc was placed in the superior subconjunctival space. A drop of antibiotic and was placed and the eye was patched and shielded. The patient was stable and returned to the recovery room in excellent condition. Dictated by: Lisa Nguyen MD Copy to: [facility] Same procedure as scheduled: Yes
[2019-11-23 10:47] VITALS: BP 138/75; PULSE 64; RESP 15; TEMP 36.3; O2SAT 99
== END 2019-11-23 10:55 | disposition home or self-care (01) ==
PROVIDERS: Family Provider Family Medicine; PCP Family Medicine; Visit Provider Ophthalmology
PROC: (CPT 66982; principal; 2019-11-23 09:45)
DX: H25.812 Combined forms of age-related cataract, left eye (principal); H40.013 Open angle with borderline findings, low risk, bilateral; H43.823 Vitreomacular adhesion, bilateral
CPT/HCPCS: 66982; J0171; J2704; J3301; J3470

== ENCOUNTER 2020-01-11 08:30 | Day surgery (SDC) | payer MEDICARE, OTHER, SELFPAY ==
--- NOTE | 2020-01-10 17:34 | PM.PREOP ---
Pre-operative Note Interval Note History & Physical reviewed/Exam performed by Physician: Yes Changes to H&P: No
--- NOTE | 2020-01-10 17:36 | PM.PREOP ---
Pre-operative Note Interval Note History & Physical reviewed/Exam performed by Physician: Yes Changes to H&P: No
--- NOTE | 2020-01-11 08:46 | PM.OP.1 ---
Operative Date/Time/Diagnoses Date of procedure: 01/11/20 Time of procedure: 09:45 Procedure & Clinicians Procedure: Preoperative diagnoses: 1. Right nuclear sclerotic and cortical cataract. 2. Vitreal macular traction. Postoperative diagnoses: 1. Cataract removed by phacoemulsification with placement of posterior chamber intraocular lens. Procedure: Phacoemulsification with posterior chamber intraocular lens implant Surgeon: Lisa Nguyen MD Complications: None Specimen: None Implant: ZCBOO+21.0 Blood loss: None Anesthesia: Retrobulbar with monitored standby Description of procedure: Patient presents with a complaint of decreased vision due to cataract which is affecting activities of daily living both at distance near. She has vitreomacular traction which may limit the postoperative outcome and has been cleared by retina to proceed with cataract only not cataract surgery. She understands she may need a future procedure if this becomes worse . The patient wants surgery to improve vision. She has had successful left cataract surgery previously. The patient was taken to the operating room and given IV sedation. A retrobulbar block consisting of 6 cc of 2% xylocaine without epinephrine mixed half and half with 0.5% Marcaine with 1 cc of hyaluronidase added is placed between the medial and lateral 1/3 of the inferior orbital rim. The eye is manually massaged for 30 sec, prepped using Betadine solution, and draped in the usual sterile fashion. Temporal approach was made, a 1 mm side-port incision was made 90? from the proposed clear corneal incision position. Phenylephrine 1.5% mixed with 1% xylocaine 0.2 cc was placed into the anterior chamber. Viscoat followed by Madisyn was then placed. A 2.6 mm clear incision with a 2.6 mm blade was placed. A 360 degree capsulorrhexis style capsulotomy was then performed with a cystitome needle on a Healon. Hydrodelineation and hydrodissection were performed. The phacoemulsification unit is introduced, and sculpting notice used to groove the central lens. It is then removed in chopping mode. Epi nucleus is removed with epinuclear mode and irrigation aspiration was used to remove the peripheral cortex. The posterior capsule is polished. The intraocular lens is selected, inspected, power confirmed, and placed in the posterior chamber. The wound was stromally hydrated and tested for leaks, there was none and it was left sutureless. Vigamox 0.1 cc was placed into the anterior chamber. Kenalog 0.2 cc was placed in the superior subconjunctival space. A drop of antibiotic and was placed and the eye was patched and shielded. The patient was stable and returned to the recovery room in excellent condition. Dictated by: Lisa Nguyen MD Copy to: [facility] Same procedure as scheduled: Yes
[2020-01-11] MEDS: PROPARACAINE 0.5% OPHTH SOL 2 DROPS EYE-OP (08:58)
[2020-01-11] MEDS: CATARACT EYE COMPOUND (10 DROPS/SYRINGE) 3 DROPS EYE-OP (08:58)
[2020-01-11 09:01] VITALS: BP 140/87; PULSE 66; RESP 15; TEMP 36.4; O2SAT 98; BMI 32.8
[2020-01-11] MEDS: CHONDROIDTIN/SOD HYALURONATE 1.05 ML SYRINGE INTRAOCULA (10:07)
[2020-01-11] MEDS: HYALURONATE SODIUM 10 MG/ML SYRINGE INJ (10:08)
[2020-01-11] MEDS: ERYTHROMYCIN OPHTH 1 GM OINT 1 APPLIC EYE-RIGHT (10:08)
[2020-01-11] MEDS: TRIAMCINOLONE 50 MG/5 ML VIAL INJ (10:09)
[2020-01-11] MEDS: MOXIFLOXACIN INJ 5 MG/ML VIAL EYE-OP (10:09)
[2020-01-11] MEDS: PHENYLEPHRINE/LIDOCAINE VIAL (OR) 0.2 ML EYE-OP (10:09)
[2020-01-11] MEDS: BALANCED SALT IRRIG SOLN NO.2 500 ML, EPINEPHrine 1 MG IRR (10:10)
[2020-01-11] MEDS: LIDOCAINE 2% 4 ML, BUPIVACAINE 0.5% (PF) 4 ML, HYALURONIDASE 150 UNIT INJ (10:11)
[2020-01-11 10:43] VITALS: BP 137/77; PULSE 72; RESP 16; TEMP 36.5; O2SAT 99
== END 2020-01-11 11:00 | disposition home or self-care (01) ==
LOC: OR 08:32
PROVIDERS: PCP Family Medicine; Referring Provider Family Medicine; Visit Provider Ophthalmology
PROC: (CPT 66984; principal; 2020-01-11 09:45)
DX: H25.811 Combined forms of age-related cataract, right eye (principal); H43.821 Vitreomacular adhesion, right eye; E03.9 Hypothyroidism, unspecified
CPT/HCPCS: 66984; J0171; J2250; J2704; J3010; J3301; J3470

== ENCOUNTER → 2020-06-21 08:55 | Outpatient (CLI) | payer MEDICARE, OTHER, SELFPAY ==
--- NOTE | 2020-06-21 | DI.US.S_ITS ---
PROCEDURE: US PELVIC COMPLETE INDICATIONS: PELVIC PAIN TECHNIQUE: Real-time scanning was performed of the pelvic organs, with image documentation. Additional endovaginal scanning was necessary due to incomplete visualization of the adnexal and endometrial structures by transabdominal scanning. COMPARISON: [facility], US, PELVIC COMPLETE, 03/31/2016, 10:24. FINDINGS: Transabdominal scanning: Kidneys not well visualized sonographically. No pathologic free abdominal or pelvic fluid. Endovaginal scanning: Uterus surgically absent. Ovaries: Right ovary measures 3.3 x 1.9 x 2.4 cm. There is a right ovarian cystic lesion technically indeterminate measuring 2.2 x 1.7 x 1.5 cm. Left ovary measures 2.9 x 2.3 x 2.2 cm. IMPRESSION: Nonspecific 2.2 cm right ovarian cystic lesion, which in the postmenopausal setting recommend continued annual ultrasound surveillance to document long-term stability and exclude neoplasm. Dictated by: Cleveland Lazar M.D. on 06/21/2020 at 11:16 Approved by: Cleveland Lazar M.D. on 06/21/2020 at 11:21
== END ==
PROVIDERS: PCP Family Medicine; Referring Provider Family Medicine; Visit Provider Family Medicine
DX: R10.2 Pelvic and perineal pain (principal); N83.201 Unspecified ovarian cyst, right side; Z90.710 Acquired absence of both cervix and uterus
CPT/HCPCS: 76856

== ENCOUNTER → 2021-02-08 12:03 | Outpatient (CLI) | payer MEDICARE, OTHER, SELFPAY ==
--- NOTE | 2021-02-08 | DI.RAD.S_ITS ---
PROCEDURE: XR LUMBAR SPINE 2-3V INDICATIONS: LOW BACK PAIN TECHNIQUE: 3 views of the lumbar spine were acquired. COMPARISON: None. FINDINGS: Bones: 5 [id number] vertebrae are present. There is mild grade 1 retrolisthesis of L1 on L2. Mild grade 1 anterolisthesis of L4 on L5. Multilevel disc space narrowing and endplate osteophyte formation. No vertebral body compression fractures. No suspicious bony lesions. Soft tissues: Overlying bowel gas pattern is normal. No suspicious soft tissue calcifications. IMPRESSION: Multilevel degenerative disc disease. Multilevel facet osteoarthritis. No acute fracture. No osseous lesion. If symptoms and/or clinical suspicion for pathology persist, further assessment with repeat, or advanced imaging (e.g., CT, MRI, or bone scan) may be helpful for further assessment. Dictated by: Alicja Lara M.D. on 02/08/2021 at 16:51 Approved by: Alicja Lara M.D. on 02/08/2021 at 16:52
== END ==
PROVIDERS: PCP Family Medicine; Referring Provider Family Medicine; Visit Provider Family Medicine
DX: M54.5 Low back pain (principal); M51.16 Intervertebral disc disorders with radiculopathy, lumbar region; M47.26 Other spondylosis with radiculopathy, lumbar region
CPT/HCPCS: 72100

== ENCOUNTER 2021-02-17 10:29 | Emergency (ER) | payer MEDICARE, OTHER, SELFPAY ==
[2021-02-17 10:40] VITALS: BP 154/71; PULSE 70; RESP 16; TEMP 36.4; O2SAT 98; BMI 31.1
--- NOTE | 2021-02-17 10:53 | ED.SKABFB ---
HPI - Skin/Abscess/Foreign Bdy General Chief complaint: Skin/Abscess/Foreign Body Stated complaint: allergic reaction to medication (prednisone) Time Seen by Provider: 02/17/21 10:50 Source: patient Mode of arrival: Ambulatory Limitations: no limitations History of Present Illness HPI narrative: Patient is a 65-year-old female here for evaluation which he thinks is an allergic reaction. On Thursday she started on prednisone for lower back pain/sciatica. She states that this has improved her lower back pain. Yesterday she started noticing some redness and swelling to her face. She also thinks she has swollen lymph nodes and also headache. She has not taken anything for symptoms prior to arrival. No problems breathing. No shortness of breath. No nausea vomiting. Related Data Home Medications Medication Instructions Recorded Confirmed ketorolac 2 drp OPHTHALMIC (EYE) DAILY 07/15/19 01/11/20 prednisolone acetate 2 drp OPHTHALMIC (EYE) DAILY 07/15/19 01/11/20 tobramycin 2 drp OPHTHALMIC (EYE) DAILY 07/15/19 01/11/20 levothyroxine 25 mcg PO DAILY 11/23/19 01/11/20 Allergies Allergy/AdvReac Type Severity Reaction Status Date / Time codeine Allergy Intermediate Verified 02/17/21 10:46 hydrocodone [HYDROCODONE] Allergy Unknown ITCHING Verified 02/17/21 10:46 AND THROAT SWELLING sulfamethoxazole AdvReac Mild rash, Verified 02/17/21 10:46 [From Bactrim] nausea trimethoprim [From Bactrim] AdvReac Mild rash, Verified 02/17/21 10:46 nausea Review of Systems Constitutional Constitutional: Denies fatigue, Denies fever(s) and Reports headache(s) Eyes Eyes: Denies blurry vision ENT Ears, Nose, Mouth, and Throat: Reports headache(s) and Denies sore throat Cardiovascular Cardiovascular: Denies chest pain and Denies dyspnea Respiratory Respiratory: Denies dyspnea Gastrointestinal Gastrointestinal: Denies abdominal pain, Denies nausea and Denies vomiting Genitourinary Genitourinary: Denies dysuria Genitourinary: Denies dysuria Musculoskeletal Musculoskeletal: Denies myalgias Integumentary/Breasts Skin/Breast: Reports rash Comments: Red upper arms and chest and face Neurologic Neurologic: Denies behavioral changes and Reports headache(s) Psychiatric Psychiatric: Denies behavioral changes Endocrine Endocrine: Denies fatigue Hematologic/Lymphatic On Anticoagulants: No Allergic/Immunologic Allergic/Immunologic: Denies urticaria Patient History Medical History History of drainage of abscess (~06/2019) Surgical History H/O abdominoplasty History of repair of hiatal hernia Status post cholecystectomy Status post hysterectomy Family History Father Diabetes mellitus Gallstones Mother Hypertension Heart disease Stroke Social History marital status: household members: spouse occupational status: employed Smoking Status: Never smoker alcohol intake: current substance use type: does not use Smoking Status: Never smoker alcohol intake frequency: 0-2 drinks per day Substance Use Type: does not use Exam Initial Vital Signs Initial Vital Signs: Vital Signs Temperature 97.5 F L 02/17/21 10:40 Pulse Rate 70 02/17/21 10:40 Respiratory Rate 16 02/17/21 10:40 Blood Pressure 154/71 H 02/17/21 10:40 Pulse Oximetry 98 02/17/21 10:40 Const General: cooperative and comfortable Limitations: mental status not altered [facility] Head: normal to inspection and normocephalic Nose: external nose normal Face and sinus: normal facial exam Eyes General: appearance normal, both eyes and all related structures Neck Lymphatic: No lymphadenopathy Chest Chest: No tenderness Resp Effort & Inspection: normal respiratory effort Auscultation: clear to auscultation bilaterally Cardio Rate: regular rate Rhythm: regular rhythm GI Inspection: non-distended Skin Other: Patient does have redness to the dorsum of bilateral arms and also to her chest. Also redness to her face. No blistering. Neuro General: patient alert and patient awake Cognition: normal cognition Speech: speech normal Extrem General: normal to inspection and capillary refill normal Psych Appearance: grossly normal and well kempt Scores GCS Jairon coma scale eye opening: Spontaneous Jairon coma scale verbal response: Orientated [place] coma scale motor response: Obey commands Jairon coma scale total score: 15 Course Vital Signs Vital signs: Vital Signs - 8 hr 02/17/21 10:40 Temperature 97.5 F L Pulse Rate 70 Respiratory Rate 16 Blood Pressure 154/71 H Pulse Oximetry 98 MDM - Skin/Abscess/Foreign Bdy MDM Narrative Medical decision making narrative: Unsure whether not the patient is having an allergic reaction. She certainly not having an anaphylactic reaction given her symptoms today. I am also unsure whether not it is the prednisone that is causing her symptoms although this is the only new exposure that she knows of. She thinks that the redness on her arms and upper chest is from the son and this potentially could be what is causing the redness on her face as well. She states she has Benadryl at home. I do not feel that she needs IV medications here in the ER. She will stop the prednisone. She does not need to taper given the amount of time that she has been on a. She was given return precautions and follow-up instructions. She expressed understanding and agreement. Discharge Plan Departure Patient Disposition: Home Clinical Impression: Allergic reaction Instructions: DI for Adverse Drug Reaction -- Allergic Activity Restrictions/Additional Instructions: I do recommend that you stop the prednisone. Given the amount of time the you have been on it you do not need to taper. You can take Benadryl for any redness. You can also take Tylenol for headaches. Return to the emergency department for any new or worsening symptoms Prescriptions: No Action levothyroxine 25 mcg Tablet 25 mcg PO DAILY RF: 0 ketorolac 0.5 % drops 2 drp OPHTHALMIC (EYE) DAILY RF: 0 prednisolone acetate 1 % drops,suspension 2 drp OPHTHALMIC (EYE) DAILY RF: 0 tobramycin 0.3 % drops 2 drp ophthalmic (eye) DAILY RF: 0 Referrals: Jada Archer MD [Primary Care Provider] -
[2021-02-17 11:00] VITALS: BP 150/76; PULSE 68; RESP 16; O2SAT 99
== END 2021-02-17 11:10 | disposition home or self-care (01) ==
PROVIDERS: Emergency Provider Emergency Medicine; PCP Family Medicine
DX: R21 Rash and other nonspecific skin eruption (principal); R51.9 Headache, unspecified; T78.40XA Allergy, unspecified, initial encounter
CPT/HCPCS: 99281

== ENCOUNTER → 2021-03-19 13:20 | Outpatient (CLI) | payer MEDICARE, OTHER, SELFPAY ==
--- NOTE | 2021-03-19 | DI.MRI.S_ITS ---
PROCEDURE: MR LUMBAR SPINE WO CON INDICATIONS: radiculopathy lumbar region TECHNIQUE: Noncontrast sagittal T1 spin echo and T2 fast echo, sagittal STIR, axial T1 and T2 fast spin echo through the lumbar spine. In cases with scoliosis, additional coronal T2 fast spin echo may be performed. COMPARISON: None. FINDINGS: Image quality: Excellent. Alignment and Curvature: Grade 1 retrolisthesis of L1 on L2. Grade 1 anterolisthesis of L4 on L5. Bone Marrow: No evidence of acute fracture. Multilevel degenerative endplate sclerosis and spurring. Diffuse facet arthropathy. Spinal Cord: Conus medullaris terminates at the L1 level. Visualized cord demonstrates normal signal and size. Paraspinous Soft Tissues: No paravertebral masses. There is nonspecific, dependent posterior subcutaneous soft tissue edema from level of L1-L2 T10-T11: Posterior annular fissure and mild canal narrowing. Mild bilateral foraminal stenosis T11-T12: Posterior annular fissure and mild canal narrowing. No foraminal stenosis T12-L1: Minimal canal narrowing. Lateral recesses appear grossly patent. Mild bilateral foraminal narrowing. L1-L2: Minimal canal narrowing. Partial effacement of both lateral recesses with bilaterally symmetric appearance. Moderate bilateral foraminal stenoses. L2-L3: No definite canal stenosis. Lateral recesses appear grossly patent. Mild bilateral foraminal narrowing. L3-L4: Mild canal narrowing with mild dorsal epidural lipomatosis. Partial effacement of both lateral recesses with bilaterally symmetric appearance. Mild bilateral foraminal narrowing. L4-L5: Dorsal epidural lipomatosis. Severe canal narrowing. Partial effacement of both lateral recesses with bilaterally symmetric appearance. Mild bilateral foraminal narrowing. L5-S1: No canal stenosis. Lateral recesses appear patent. Mild bilateral foraminal narrowing. IMPRESSION: Multilevel spondylolisthesis as above. Severe canal narrowing at L4-L5. Numerous bilateral foraminal stenoses as detailed above by spinal level. Dictated by: Cleveland Lazar M.D. on 03/19/2021 at 15:24 Approved by: Cleveland Lazar M.D. on 03/19/2021 at 15:30
== END ==
PROVIDERS: PCP Family Medicine; Referring Provider Internal Medicine Sports Medicine; Visit Provider Internal Medicine Sports Medicine
DX: M54.16 Radiculopathy, lumbar region (principal); M54.17 Radiculopathy, lumbosacral region; M43.16 Spondylolisthesis, lumbar region; M48.061 Spinal stenosis, lumbar region without neurogenic claudication; M48.07 Spinal stenosis, lumbosacral region
CPT/HCPCS: 72148

== ENCOUNTER → 2023-04-03 14:42 | Outpatient (CLI) | payer MEDICARE, OTHER, SELFPAY ==
--- NOTE | 2023-04-03 | DI.RAD.S_ITS ---
PROCEDURE: XR LUMBAR SPINE 2-3V INDICATIONS: Arthrodesis status TECHNIQUE: 3 views of the lumbar spine were acquired. COMPARISON: [facility], CR, XR LUMBAR SPINE 2-3V, 02/08/2021, 12:13. FINDINGS: Bones: 5 [id number] vertebrae are present. Posterior fusion hardware at L5 are L5. Multilevel disc space narrowing and endplate osteophyte formation. Multilevel facet hypertrophy There is normal bony alignment. No vertebral body compression fractures. No suspicious bony lesions. Soft tissues: Overlying bowel gas pattern is normal. No suspicious soft tissue calcifications. IMPRESSION: 1. Postsurgical sequelae. 2. Multilevel degenerative disc and facet disease. 3. No acute fracture. No osseous lesion. If symptoms and/or clinical suspicion for pathology persist, further assessment with repeat, or advanced imaging (e.g., CT, MRI, or bone scan) may be helpful for further assessment. Dictated by: Alicja Lara M.D. on 04/03/2023 at 16:32 Approved by: Alicja Lara M.D. on 04/03/2023 at 16:33
== END ==
PROVIDERS: PCP Family Medicine; Referring Provider Physician Assistant Surgical; Visit Provider Physician Assistant Surgical
DX: M51.36 Other intervertebral disc degeneration, lumbar region (principal); M47.816 Spondylosis without myelopathy or radiculopathy, lumbar region; Z98.1 Arthrodesis status
CPT/HCPCS: 72100

== ENCOUNTER → 2024-03-03 09:52 | Outpatient (CLI) | payer MEDICARE, OTHER, SELFPAY ==
--- NOTE | 2024-03-03 09:53 | DI.RAD.S_ITS ---
PROCEDURE: XR DEXA AXIAL SKELETON INDICATIONS: Bone density screening COMPARISON: None. FINDINGS: Lumbar Spine: L1-L3. Bone mineral density 0.920 g/cm2, T score -0.9. Left Hip: Bone mineral density 0.808 g/cm2, T score -1.1. Left Femoral Neck: Bone mineral density 0.643 g/cm2, T score -1.9. Right Hip: Bone mineral density 0.789 g/cm2, T score -1.3. Right Femoral Neck: Bone mineral density is 0.626 g/cm2, T score -2.0. Major osteoporotic fracture risk 11%. 10 year hip fracture risk 1.9%. IMPRESSION: Osteopenia. Follow-up guidelines as follows: Osteoporosis: Consider a repeat DEXA and Vertebral Fracture Assessment (VFA) exam in 2 years or sooner if medically necessary, to reassess this patient's status. Osteopenia: Consider a repeat DEXA in 2-3 years to reassess this patient's status, or if there is a new clinical indication. Normal: Consider a repeat DEXA in 5 years or sooner, or if there is a new clinical indication. Dictated by: Good Echevarria M.D. on 03/03/2024 at 12:30 Approved by: Good Echevarria M.D. on 03/03/2024 at 15:29
== END ==
PROVIDERS: PCP Family Medicine; Referring Provider Family Medicine; Visit Provider Family Medicine
DX: M85.89 Other specified disorders of bone density and structure, multiple sites (principal)
CPT/HCPCS: 77080